=== PATIENT | female | born 1965 | race Caucasian/White ===

== ENCOUNTER → 2018-07-09 | Outpatient (CLI) | payer OTHER ==
--- NOTE | 2018-07-09 13:11 | Diagnostic Imaging Report ---
Thyroid ultrasound dated 07/09/2018 at 10:42 AM. Indication: Swelling on the right side with a right thyroid nodule. Comparison: <None available>. Discussion: Transverse and longitudinal images of the thyroid were obtained demonstrating heterogeneous appearing texture of both lobes of the thyroid. Increased vascularity to the thyroid lobes. The sizes of the lobes are normal with the right thyroid lobe measuring 4.4 x 1.5 x 1.7 cm and the left measuring 3.9 x 1.4 x 1.4 cm. The isthmus measures 0.3 cm. No nodules are present. There are prominent lymph nodes in both sides of the neck. Largest on the right measures 1.3 cm and on the left measures 1.0 cm. IMPRESSION: 1. Heterogeneous appearing thyroid gland with increased vascularity. 2. No focal nodule or mass. 3. Prominent lymph nodes in both sides of the neck. Signed by: Dr. Alek Ly DO on 07/09/2018 1:08 PM
== END ==
LOC: US 10:18
PROVIDERS: ATTEND Internal Medicine
DX: E04.1 Nontoxic single thyroid nodule (principal)
CPT/HCPCS: 76536